=== PATIENT | female | born 1975 | race Caucasian/White ===

== ENCOUNTER 2024-01-31 16:28 | Observation (INO) ==
[2024-01-31] MEDS: Famotidine IV 10 MG/ML 2 ml VIAL (20 mg) IV SLOW PU ONE (17:13)
[2024-01-31] MEDS: Orphenadrine Citrate INJ 30 mg/ml 2 ml VIAL (60 mg) IV ONE (17:13)
[2024-01-31] MEDS: Prochlorperazine 5 mg/ml 2 ml VIAL (10 mg) IV ONE (17:13)
[2024-01-31 17:29] LABS: Hematocrit 36.5 % (35-45); Hemoglobin 12.3 g/dL (11.5-14.3); Mean Corpuscular Hgb Conc 33.6 g/dL (31-36); Mean Corpuscular Volume 74.3 fL (80-97); Mean Platelet Volume 8.5 fL (7.5-11.2); Platelet Count 281 10^3/uL (150-450); Red Blood Count 4.91 10^6/uL (3.63-4.92)
[2024-01-31 18:08] LABS: Albumin 4.8 g/dL (3.2-5.2); Albumin/Globulin Ratio 1.8 (1-3); C Reactive Protein 2.73 mg/L (<8.01); Calcium 9.6 mg/dL (8.6-10.3); Creatinine, Serum 0.78 mg/dL (0.51-0.95); Globulin 2.7 g/dL (2-4); Total Bilirubin 0.8 mg/dL (0.2-1.0); Total Protein 7.5 g/dL (6.4-8.9); eGFR CKD-EPI 94.2 (>60)
[2024-01-31 18:23] LABS: ABS Eosinophils 0.4 10^3/uL (0.0-0.5); ABS Lymphocytes 1.3 10^3/uL (1.0-4.8); ABS Monocytes 0.3 10^3/uL (0.0-0.9); ABS Neutrophils 6.8 10^3/uL (1.5-7.6); ABS Nucleated RBC 0.01 10^3/ul; Anisocytosis 1+; Eosinophil % 4.7 %; Nucleated Red Blood Cells % 0.2 %/100WBC (0.0-0.8)
[2024-01-31 21:17] LABS: Urine Appearance Clear; Urine Bilirubin Negative (Negative); Urine Blood Negative (Negative); Urine Color Yellow; Urine Glucose Negative (Negative); Urine Ketones Trace (Negative); Urine Nitrite Negative (Negative); Urine Protein Trace (Negative); Urine Specific Gravity 1.024 (1.002-1.030); Urine Urobilinogen 1+ (Negative); Urine pH 6.5 (5.0-8.0)
[2024-01-31] MEDS ORDERED: Bupivacaine 0.25% EPI 200,000 30 ML SDV ONE (22:07)
[2024-01-31] MEDS ORDERED: ceFAZolin 2 GM PREMIX 2 GM/50 ML BAG ONE (22:25)
[2024-01-31] MEDS ORDERED: Naloxone 0.4 mg VIAL 0.4 mg/ml 1 ml VIAL IV PRN (22:32)
[2024-01-31] MEDS ORDERED: fentaNYL 100 mcg/2 ml 50 MCG/ML VIAL IV PRN (22:32)
[2024-01-31] MEDS ORDERED: Ondansetron 4 mg VIAL 2 MG/ML 2 ml VIAL IV PRN (22:32)
[2024-01-31] MEDS ORDERED: Midazolam 2 mg/2 ml VIAL 1 mg/ml 2 ml VIAL (2 mg) ONE (22:50)
[2024-01-31] MEDS ORDERED: Metoclopramide 5 MG/ML VIAL (10 mg) ONE (22:51)
[2024-01-31] MEDS ORDERED: Rocuronium 50 mg VIAL 10 mg/ml 5 ml VIAL (50 mg) ONE (22:51)
[2024-01-31] MEDS ORDERED: fentaNYL 250 mcg/5 ml 50 MCG/ML 5 ml VIAL (250 MCG) ONE (22:51)
[2024-01-31] MEDS ORDERED: Dexmedetomidine 200 mcg/2 ml 2 ml VIAL (200 mcg) ONE (22:51)
[2024-01-31] MEDS ORDERED: Propofol 10 MG/ML 20 ML BTL ONE (22:51)
[2024-01-31] MEDS ORDERED: Dexamethasone IV 4 MG/ML VIAL 1 ml VIAL ONE (22:51)
[2024-01-31] MEDS ORDERED: Ondansetron 4 mg VIAL 2 MG/ML 2 ml VIAL ONE (22:52)
[2024-02-01] MEDS ORDERED: Glycopyrrolate IV 0.2 MG/ML 1 ML VIAL ONE (00:10)
[2024-02-01] MEDS ORDERED: oxyCODONE/Acetamin 5/325 mg TAB PO PRN (00:16)
[2024-02-01] MEDS: Lactated Ringers 1000 ml BAG 1,000 ML IV SCH (02:30)
[2024-02-01] MEDS: Morphine ORAL.SOLN 10 mg 2 mg/ml UDC 5 ml (10 mg) PO SCH (09:41)
[2024-02-01 14:04] VITALS: BP 121/70
== END 2024-02-01 14:25 | disposition home or self-care (01) ==
LOC: ED 16:28 → OR 21:46 → SSU 21:46 → OR 22:00
PROVIDERS: ADMIT Surgery; ATTEND Surgery